=== PATIENT | female | born 1950 | race Caucasian/White ===

== ENCOUNTER 2019-05-18 13:49 | Emergency (ER) | payer BC, MEDICARE, OTHER ==
--- NOTE | 2019-05-18 14:40 | XRAY Report ---
Reason: chest pain Procedure Date: 05/18/2019 Accession Number: [id number] / [id number] Procedure: XR - Chest 1 View X-Ray CPT Code: 46124 FULL RESULT: EXAM: CHEST RADIOGRAPHY EXAM DATE: 05/18/2019 02:22 PM. CLINICAL HISTORY: Chest pain. COMPARISON: None. TECHNIQUE: 1 view. FINDINGS: Lungs/Pleura: No focal opacities evident. No pleural effusion. No pneumothorax. Mediastinum: Cardiomediastinal silhouette and pulmonary vasculature are within normal limits. Other: There is mild apex right curvature of the lower thoracic spine. IMPRESSION: No acute cardiopulmonary abnormality. RADIA
[2019-05-18 15:12] LABS: BASOPHILS # (AUTO) 0.1 10^3/uL (0.0-0.1); BASOPHILS % (AUTO) 0.8 %; EOSINOPHILS # (AUTO) 0.2 10^3/uL (0.0-0.7); EOSINOPHILS % (AUTO) 2.1 %; HGB - HEMOGLOBIN 13.5 g/dL (12.0-16.0); LYMPHOCYTES # (AUTO) 2.9 10^3/uL (1.5-3.5); LYMPHOCYTES % (AUTO) 41.3 %; MEAN CORPUSCULAR HEMOGLOBIN 33.6 pg (27.0-31.0); MEAN CORPUSCULAR HGB CONC 33.4 g/dL (32.0-36.0); MEAN CORPUSCULAR VOLUME 100.5 fL (81.0-99.0); MEAN PLATELET VOLUME 9.7 fL (7.9-10.8); MONOCYTES # (AUTO) 0.7 10^3/uL (0.0-1.0); MONOCYTES % (AUTO) 9.3 %; NEUTROPHILS # (AUTO) 3.3 10^3/uL (1.5-6.6); NEUTROPHILS % (AUTO) 46.1 %; PLT - PLATELET COUNT 190 10^3/uL (130-450); RED BLOOD COUNT 4.02 10^6/uL (4.20-5.40); RED CELL DISTRIBUTION WIDTH 12.7 % (12.0-15.0); WHITE BLOOD COUNT 7.1 x10^3/uL (4.8-10.8)
[2019-05-18 15:30] LABS: ALBUMIN 4.6 g/dL (3.2-5.5); ALBUMIN/GLOBULIN RATIO 1.9 (1.0-2.2); BILIRUBIN,TOTAL 0.6 mg/dL (0.2-1.0); CALCIUM 9.4 mg/dL (8.5-10.3); CREATININE 0.8 mg/dL (0.4-1.0)
--- NOTE | 2019-05-18 15:59 | ED Physician Documentation ---
PD HPI CHEST PAIN - Stated complaint Stated Complaint: CHEST PAIN - Chief complaint Chief Complaint: Cardiac - History obtained from History obtained from: Patient - History of Present Illness Timing - onset: Today (69-year-old woman without history of coronary disease has had episodic upper chest tightness sometimes radiating to the back that has been nonexertional. She has had episodes lasting about half an hour over the last couple of weeks on an occasional basis but was more constant starting at 1230 today and persists. There is no associated nausea, shortness of breath, dizziness. No recent travel, pedal edema, or calf pain.) Review of Systems Constitutional: reports: Fatigue. denies: Fever, Chills Cardiac: reports: Chest pain / pressure. denies: Palpitations, Pedal edema, Calf pain Respiratory: denies: Dyspnea, Cough, Hemoptysis, Wheezing GI: denies: Abdominal Pain, Nausea, Vomiting PD PAST MEDICAL HISTORY - Present Medications Home Medications: Ambulatory Orders Medication Instructions Recorded Confirmed Citalopram Hydrobromide 20 mg PO 05/18/19 [Citalopram HBr] - Allergies Allergies/Adverse Reactions: Allergies Allergy/AdvReac Type Severity Reaction Status Date / Time No Known Drug Allergies Allergy Verified 05/18/19 14:03 PD ED PE NORMAL - Vitals Vital signs reviewed: Yes - General General: Alert and oriented X 3, No acute distress - HEENT HEENT: PERRL, EOMI - Neck Neck: Supple, no meningeal sign, No bony TTP - Cardiac Cardiac: RRR, No murmur - Respiratory Respiratory: No respiratory distress, Clear bilaterally - Abdomen Abdomen: Soft, Non tender - Back Back: No CVA TTP, No spinal TTP - Derm Derm: Normal color, Warm and dry - Extremities Extremities: No edema, No calf tenderness / cord - Neuro Neuro: Alert and oriented X 3, Normal speech Results - Vitals Vitals: Vital Signs - 24 hr 05/18/19 05/18/19 05/18/19 14:01 15:54 18:05 Temperature 36.8 C Heart Rate 70 62 58 L Respiratory 18 16 18 Rate Blood Pressure 137/65 H 170/74 H 155/75 H O2 Saturation 99 97 98 Oxygen O2 Source Room air - EKG (time done) 1400 Rate: Rate (enter#) (73) Rhythm: NSR [place]: Normal Intervals: Normal [place] QRS: Normal Ischemia: Normal ST segments. No: ST elevation c/w ischemia, ST elevation c/w repol, ST depression, Hyperacute T waves, T wave inversion Computer interpretation: Agree with computer - Labs Labs: Laboratory Tests 05/18/19 05/18/19 05/18/19 14:35 14:35 14:35 WBC 7.1 RBC 4.02 L Hgb 13.5 Hct 40.4 MCV 100.5 H MCH 33.6 H MCHC 33.4 RDW 12.7 Plt Count 190 MPV 9.7 Neut # (Auto) 3.3 Lymph # (Auto) 2.9 [place] # (Auto) 0.7 Eos # (Auto) 0.2 Baso # (Auto) 0.1 Absolute Nucleated RBC 0.00 Nucleated RBC % 0.0 Sodium 136 Potassium 4.3 Chloride 102 Carbon Dioxide 25 Anion Gap 9.0 BUN 33 H Creatinine 0.8 Estimated GFR (MDRD) 71 L Glucose 103 H Calcium 9.4 Total Bilirubin 0.6 AST 20 ALT 17 Alkaline Phosphatase 49 Troponin I High Sens 4.8 Total Protein 7.0 Albumin 4.6 Globulin 2.4 Albumin/Globulin Ratio 1.9 Lipase 56 H 05/18/19 17:20 WBC RBC Hgb Hct MCV MCH MCHC RDW Plt Count MPV Neut # (Auto) Lymph # (Auto) [place] # (Auto) Eos # (Auto) Baso # (Auto) Absolute Nucleated RBC Nucleated RBC % Sodium Potassium Chloride Carbon Dioxide Anion Gap BUN Creatinine Estimated GFR (MDRD) Glucose Calcium Total Bilirubin AST ALT Alkaline Phosphatase Troponin I High Sens 4.1 Total Protein Albumin Globulin Albumin/Globulin Ratio Lipase - Rads (name of study) 1v chest Radiology: EMP read contemporaneously (normal) PD MEDICAL DECISION MAKING - ED course ED course: 69-year-old woman with atypical chest pain, however there is a little bit of a crescendo component to it. EKG and 2 troponins are negative in the department. I spoke with Tony and they made her a follow-up appointment with her PCP to consider stress testing. Departure - Departure Disposition: 01 Home, Self Care Clinical Impression: Chest pain Qualifiers: Chest pain type: unspecified Qualified Code(s): R07.9 - Chest pain, unspecified Condition: Good Record reviewed to determine appropriate education?: Yes Instructions: ED Chest Pain Atypical Unkn Cause Comments: I spoke with [facility], they made you an appointment with Shayy Coyle, your primary care physician at 9 AM on Monday. Please report there with the paperwork I printed out for you. I recommend scheduling a stress test. Return for new or worsening symptoms. Take aspirin daily until she advises you otherwise.
[2019-05-18] MEDS ORDERED: ASPIRIN CHEW 81 MG TABLET PO STA (17:35)
[2019-05-18 18:06] VITALS: BP 155/75
== END 2019-05-18 18:47 | disposition home or self-care (01) ==
LOC: ED 13:49
DX: R07.89 Other chest pain (principal)
CPT/HCPCS: 36415; 71045; 80053; 83690; 84484; 85025; 93005; 99284; A9270

== ENCOUNTER 2023-07-26 08:00 | Outpatient (CLI) | payer MEDICARE ==
--- NOTE | 2023-07-26 15:14 | XRAY Report ---
PROCEDURE: Knee 4 View RT INDICATIONS: RIGHT KNEE PAIN TECHNIQUE: 4 views of the knee(s) were acquired. COMPARISON: None FINDINGS: Bones: No fractures or dislocations. No suspicious bony lesions. There is moderate tricompartment al arthritic change most severe medially. Small paratracheal or osteophytes are present. No erosions. Soft tissues: No knee joint effusion. No suspicious soft tissue calcifications or masses. IMPRESSION: Tricompartmental arthritic change most severe medially. Reviewed by: Shabana Lee MD on 07/26/2023 3:13 PM PDT Approved by: Shabana Lee MD on 07/26/2023 3:13 PM PDT Station ID: [id number]
== END 2023-07-26 11:59 | disposition home or self-care (01) ==
LOC: DI.S 08:00
PROVIDERS: ATTEND Physician Assistant
DX: M17.11 Unilateral primary osteoarthritis, right knee (principal)